=== PATIENT | female | born 2005 | race Caucasian/White ===

== ENCOUNTER 2025-02-27 19:53 | Emergency (ER) | payer OTHER, SELFPAY ==
[2025-02-27 20:15] VITALS: BP 153/76; PULSE 78; RESP 14; TEMP 36.6; O2SAT 99; BMI 33.6
[2025-02-27 20:49] LABS: Add Manual Diff / Slide Review NO; Hematocrit 36.5 % (36-46); Hemoglobin 12.4 g/dL (12.0-16.0); Lymphocytes Absolute Auto 1900 /uL (1100-4500); Mean Corpuscular HGB Conc 33.9 % (30-36); Mean Corpuscular Hemoglobin 31.1 PG (26-34); Mean Corpuscular Volume 91.7 fL (80-100); Platelet Count 296 X10^3/uL (150-400)
[2025-02-27 21:00] LABS: Alanine Aminotransferase 14 IU/L (<35); Albumin 4.8 g/dL (3.5-5.0); Albumin Globulin Ratio 1.2 (1.0-2.8); Alkaline Phosphatase 45 U/L (38-126); Blood Urea Nitrogen 14 mg/dL (7-17); Calcium 9.6 mg/dL (8.4-10.2); Carbon Dioxide 27 mmol/L (22-32); Chloride 104 mmol/L (98-107); Estimated Glomerular Filt Rate > 60 mL/min (>60); Globulin 3.9 g/dL (1.7-4.1); Glucose 98 mg/dL (70-99); HEMOLYSIS < 15 (0-50); Lipase 94 U/L (23-300); Potassium 3.7 mmol/L (3.4-5.1); Sodium 140 mmol/L (137-145); Total Protein 8.7 g/dL (6.3-8.2)
[2025-02-27 23:38] VITALS: BP 140/79; PULSE 78; O2SAT 100
[2025-02-28] VITALS: BP 121/79; PULSE 69; O2SAT 99
[2025-02-28 00:30] VITALS: BP 116/76; PULSE 69; O2SAT 100
--- NOTE | 2025-02-28 01:02 | ED.ABDPAIN ---
HPI - Abdominal Pain General Chief Complaint: Abdominal Pain Stated Complaint: lower abd pain 10 hr Time Seen by Provider: 02/28/25 01:01 Source: patient, RN notes reviewed and old records reviewed Mode of arrival: Ambulatory Limitations: no limitations History of Present Illness HPI narrative: 20-year-old female with no reported medical issues complaint of right lower quadrant pain that started about 9:00 a.m. in the morning. Patient states got little bit more intense had acetaminophen was not very helpful. Lasted for about 10 hours has since resolved. States it was in the right lower quadrant did radiate a little bit to the midline and even a little to the left. She denies any flank pain at any point. Denies fevers or chills. No nausea or vomiting. No chest pain or shortness of breath. No diarrhea or constipation, no black or bloody stools. No dysuria urgency or frequency. No new vaginal bleeding or discharge. Patient states last menstrual period was around February 13 and has not expecting any cramping. She states it did feel little bit like menstrual cramps. She states no daily medications or medical issues. No prior surgeries. No known drug allergies. No tobacco, no reported alcohol or recreational drugs. 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 Related Data Allergies Allergy/AdvReac Type Severity Reaction Status Date / Time No Known Drug Allergies Allergy Verified 02/27/25 20:16 Review of Systems Review of Systems ROS Unobtainable: All systems reviewed & are unremarkable except as noted in HPI and below Patient History Social History Smoking Status: Never smoker Smoking Status: Never smoker Exam Narrative Exam Narrative: GENERAL: Alert and oriented x three, no acute distress HEENT: Head normocephalic, atraumatic, EOMI, pupils reactive, face symmetric, moist mucous membranes NECK: Supple, full range of motion CARDIOVASCULAR: Regular rate and rhythm without murmurs, rubs or gallops. RESPIRATORY: Breath sounds equal bilaterally, no wheezes rales or rhonchi. ABDOMEN: Soft, nontender. Nondistended. Normoactive bowel sounds all 4 quadrants. No guarding or rebound, rigidity, no mass : No CVA tenderness EXTREMITIES: Normal range of motion, no clubbing or edema. Neurovascularly intact NEUROLOGICAL: Cranial nerves II through XII grossly intact. Moving all extremities SKIN: Warm, dry, no petechiae, no rashes or lesions. Initial Vital Signs Initial Vital Signs: Vital Signs Temperature 97.9 F 02/27/25 20:15 Pulse Rate 78 02/27/25 20:15 Respiratory Rate 14 02/27/25 20:15 Blood Pressure 153/76 H 02/27/25 20:15 Pulse Oximetry 99 02/27/25 20:15 Oxygen Delivery Method Room Air 02/27/25 20:15 Course Orders Ordered: ED Orders 02/27/25 20:36 Complete Blood Count AUTO DIFF Stat Comprehensive Metabolic Panel Stat Lipase Stat Discontinued Medications Ondansetron HCl (Ondansetron 4 Mg/2 Ml Inj) 4 mg IV NOW PRN PRN Reason: Nausea And Vomiting Ondansetron HCl (Ondansetron 4 Mg Odt) 4 mg PO NOW PRN PRN Reason: Nausea And Vomiting Vital Signs Vital signs: Vital Signs - 8 hr 02/27/25 20:15 02/27/25 23:38 02/27/25 23:38 Temperature 97.9 F Pulse Rate 78 78 Respiratory Rate 14 Blood Pressure 153/76 H 140/79 Pulse Oximetry 99 100 Oxygen Delivery Method Room Air 02/28/25 00:00 02/28/25 00:00 02/28/25 00:30 Temperature Pulse Rate 69 Respiratory Rate Blood Pressure 121/79 116/76 Pulse Oximetry 99 Oxygen Delivery Method 02/28/25 00:30 02/28/25 01:40 Temperature 98.2 F Pulse Rate 69 84 Respiratory Rate 18 Blood Pressure 132/79 Pulse Oximetry 100 99 Oxygen Delivery Method Room Air MDM - Abdominal Pain Lab Data 02/27/25 20:36 02/27/25 20:36 Labs: Lab Results 02/27/25 Range/Units 20:36 WBC 7.0 (4.5-11.0) X10^3/uL RBC 3.98 L (4.0-5.2) X10^6/uL Hgb 12.4 (12.0-16.0) g/dL Hct 36.5 (36-46) % MCV 91.7 (80-100) fL MCH 31.1 (26-34) PG MCHC 33.9 (30-36) % RDW 13.9 (11.6-14.8) % Plt Count 296 (150-400) X10^3/uL Neut % (Auto) 65.0 (50-75) % Lymph % (Auto) 27.1 (25-40) % [place] % (Auto) 5.9 (3-14) % Eos % (Auto) 1.3 L (2-4) % Baso % (Auto) 0.7 (0-2) % Neut # (Auto) 4500 (5205-9355) /uL Lymph # (Auto) 1900 (0058-0450) /uL [place] # (Auto) 400 (0-900) /uL Eos # (Auto) 100 (0-450) /uL Baso # (Auto) 100 (0-100) /uL Sodium 140 (137-145) mmol/L Potassium 3.7 (3.4-5.1) mmol/L Chloride 104 (98-107) mmol/L Carbon Dioxide 27 (22-32) mmol/L BUN 14 (7-17) mg/dL Creatinine 0.62 (0.52-1.04) mg/dL Estimated GFR > 60 (>60) mL/min BUN/Creatinine Ratio 22.6 H (6-22) Glucose 98 (70-99) mg/dL Calcium 9.6 (8.4-10.2) mg/dL Total Bilirubin 0.3 (0.2-1.3) mg/dL AST 23 (14-36) IU/L ALT 14 (<35) IU/L Alkaline Phosphatase 45 (38-126) U/L Total Protein 8.7 H (6.3-8.2) g/dL Albumin 4.8 (3.5-5.0) g/dL Globulin 3.9 (1.7-4.1) g/dL Albumin/Globulin Ratio 1.2 (1.0-2.8) Lipase 94 (23-300) U/L Point of care testing: Point of Care Testing Test Results Negative Urine Dip Bedside Urine Glucose Negative Bedside Urine Bilirubin - Negative Bedside Urine Ketone - Negative Urine Specific [place] 1.030 Bedside Urine Occult Blood - Negative Bedside Urine pH 6.0 Bedside Urine Protein - Negative Bedside Urine Urobilinogen - Negative Bedside Urine Nitrite - Negative Bedside Urine Leukocytes - Negative Esterase MDM Narrative Medical decision making narrative: Point of care urine is negative. Point of care urine is negative. CBC shows normal white count, hemoglobin of 12.4 platelets are 296, chemistries are appropriate BUN and creatinine is appropriate, LFTs are normal total protein is 8.7. Lipase is 94. 20-year-old female with right lower quadrant pain which has since resolved, she is nontender on exam with a benign exam. Labs and urine did not show any clear source of symptoms. Discussed ovarian cyst versus possibly appendicitis although with resolution of symptoms and nontender suspect more likely ovarian source. Discussed all pelvic ultrasound to evaluate versus risks benefits of CT imaging and radiation. After discussion patient is wearing have not ruled out appendicitis but seems less likely to be her source as she had stolen her having symptoms. She is able to return if symptoms recur she elects to discharge home rather than pursue imaging. Discharge Plan Departure Patient Disposition: Home Clinical Impression: Abdominal pain, RLQ Instructions: DI for Abdominal Pain-Adult Activity Restrictions/Additional Instructions: Please follow up for recheck if you are having any persistent or recurrent symptoms. You can continue with acetaminophen and/or ibuprofen as needed for pain. Please return for fevers, new or worsening abdominal back or flank pain, any persistent vomiting, black or bloody stools or other new or concerning changes. Stand Alone Forms: Patient Portal/API
[2025-02-28 01:40] VITALS: BP 132/79; PULSE 84; RESP 18; TEMP 36.8; O2SAT 99
== END 2025-02-28 01:43 | disposition home or self-care (01) ==
PROVIDERS: Emergency Provider Emergency Medicine
DX: R10.31 Right lower quadrant pain (principal)
CPT/HCPCS: 36415; 80053; 81003; 81025; 83690; 85025; 99283